=== PATIENT | male | born 1980 | race Caucasian/White ===

== ENCOUNTER 2018-05-08 20:11 | Emergency (ER) | payer BC ==
[2018-05-08] MEDS ORDERED: Diphtheria,Pertussis(Acell),Tetanus Vaccine 0.5 ML Syringe IM ONE (20:31)
[2018-05-08] MEDS ORDERED: Bacitracin Oint 1 GM U/D Packet TOP ONE (20:31)
--- NOTE | 2018-05-08 20:38 | EDM.PDOC ---
ED HPI GENERAL MEDICAL PROBLEM - General Chief Complaint: Laceration Stated Complaint: LACERATION MIDDLE FINGER Time Seen by Provider: 05/08/18 20:22 - History of Present Illness INITIAL COMMENTS - FREE TEXT/NARRATIVE: HISTORY AND PHYSICAL: History of present illness: The patient is a 38-year-old male who is unsure of his last tetanus shot and presents after cutting his left index and middle fingers while at work area and he says he was working with a hose and he cut the area he did not crush it. He has no neurosensory changes and is able to flex and extend at the digits. Prior to this event he was in his usual state of good health and has no systemic complaints. Review of systems: As per history of present illness and below otherwise all systems reviewed and negative. Past medical history: As per history of present illness and as reviewed below otherwise noncontributory. Surgical history: As per history of present illness and as reviewed below otherwise noncontributory. Social history: No reported history of drug or alcohol abuse. Family history: As per history of present illness and as reviewed below otherwise noncontributory. Physical exam: General: Well-developed well-nourished man who is nontoxic and vital signs have been reviewed by me HEENT: Atraumatic, normocephalic, negative for conjunctival pallor or scleral icterus, mucous membranes moist, throat clear, neck supple, nontender, trachea midline. Lungs: Clear to auscultation, breath sounds equal bilaterally, chest nontender. Heart: S1S2, regular rate and rhythm no overt murmurs Abdomen: Soft, nondistended, nontender. NABS Pelvis: Deferred Genitourinary: Deferred. Rectal: Deferred. Extremities: Atraumatic with full range of motion of all extremities with the exception of the left digits 2 and 3 where there are lacerations. At the volar/ palmar aspect of the index finger at the middle phalanx on the left there is a very superficial 2.0 cm laceration which is not extending to the subcutaneous and there is no soft tissue swelling. At the palmar aspect of the middle phalanx of the third digit there is a 2.75 cm laceration to the subcutaneous which is nonbleeding and there is no soft tissue swelling. There are no bony defects or tenderness to these digits. The patient is able to flex against resistance at the superficialis and profundus tendons. The remainder of the digits and hand are without defects deformities or injuries. Neurovascular unremarkable. Neuro: Awake, alert, oriented. Cranial nerves II through XII unremarkable. Cerebellum unremarkable. Motor and sensory unremarkable throughout. Exam nonfocal. Diagnostics: [] Therapeutics: Tdap, wound cleansing bacitracin and dressing after suture placement Procedure note: After the wound was cleansed the procedure was explained to the patient and local anesthesia was placed on the middle finger with 1% lidocaine without epinephrine. The wound was prepped and draped in sterile fashion and The wound was explored and no foreign bodies were appreciated. The skin edges were reapproximated using a total number of # 4 simple interrupted sutures of 4-0 Nylon. There were no complications and tolerated the procedure well. Bacitracin and tube gauze were placed on this finger as well as the index finger where there is a superficial laceration. It was explained to the patient that the other laceration on the index finger does not have significant depth requiring repair. These wounds were of simple complexity. The wound was repaired by Jessica MEJIA Impression: Lacerations to index and middle digit left hand Definitive disposition and diagnosis as appropriate pending reevaluation and review of above. Left Middle 3-Middle finger Pain Score (Numeric/FACES): 2 - Related Data Allergies Allergy/AdvReac Type Severity Reaction Status Date / Time No Known Allergies Allergy Verified 05/08/18 20:36 Home Meds: Home Meds . [No Known Home Meds] 05/08/18 [History] ED ROS GENERAL - Review of Systems Review Of Systems: ROS reveals no pertinent complaints other than HPI. ED EXAM, SKIN/RASH Exam: See Below (see Dictation) Course - Vital Signs Last Recorded V/S: Last Vital Signs Temp 36.4 C 05/08/18 20:23 Pulse 89 05/08/18 20:23 Resp 18 05/08/18 20:23 BP 143/95 H 05/08/18 20:23 Pulse Ox 97 05/08/18 20:23 - Orders/Labs/Meds Orders: Active Orders 24 hr Category Date Time Status Vaccines to be Administered [RC] PER UNIT ROUTINE Care 05/08/18 20:31 Active Meds: Medications Discontinued Medications Generic Name Dose Route Start Last Admin Trade Name Freq PRN Reason Stop Dose Admin Bacitracin 1 dose 05/08/18 20:31 05/08/18 20:48 Bacitracin Oint 1 Gm TOP 05/08/18 20:32 1 dose ONETIME ONE Administration Diphtheria/Tetanus/Acell Pertussis 0.5 ml 05/08/18 20:31 05/08/18 20:45 Adacel IM 05/08/18 20:32 0.5 ml .ONCE ONE Administration Lidocaine HCl Confirm 05/08/18 20:35 Xylocaine-Mpf 1% Administered 05/08/18 20:36 Dose 10 mls @ as directed .ROUTE .STK-MED ONE Lidocaine HCl 10 ml 05/08/18 20:31 05/08/18 20:45 Xylocaine-Mpf 1% INJECT 05/08/18 20:32 10 ml ONETIME ONE Administration Departure - Departure Time of Disposition: 20:58 Disposition: Home, Self-Care 01 Condition: Good Clinical Impression: Laceration of finger Qualifiers: Encounter type: initial encounter Finger: unspecified finger Damage to nail status: without damage Foreign body presence: without foreign body Laterality: left Qualified Code(s): S61.219A - Laceration without foreign body of unspecified finger without damage to nail, initial encounter - Discharge Information Referrals: PCP,None [Primary Care Provider] - Forms: ED Department Discharge Additional Instructions: The following information is given to patients seen in the emergency department who are being discharged to home. This information is to outline your options for follow-up care. We provide all patients seen in our emergency department with a follow-up referral. The need for follow-up, as well as the timing and circumstances, are variable depending upon the specifics of your emergency department visit. If you don't have a primary care physician on staff, we will provide you with a referral. We always advise you to contact your personal physician following an emergency department visit to inform them of the circumstance of the visit and for follow-up with them and/or the need for any referrals to a consulting specialist. The emergency department will also refer you to a specialist when appropriate. This referral assures that you have the opportunity for followup care with a specialist. All of these measure are taken in an effort to provide you with optimal care, which includes your followup. Under all circumstances we always encourage you to contact your private physician who remains a resource for coordinating your care. When calling for followup care, please make the office aware that this follow-up is from your recent emergency room visit. If for any reason you are refused follow-up, please contact the [facility] emergency department at and ask to speak to the emergency department charge nurse. [facility] Primary care- Internal Medicine and Family [address] [address] Keep the dressing that was placed in the ED on for the next 24 hours and then remove and cleanse with mild soap and water pat dry. He may apply bacitracin or Neosporin to the area. Please cleanse the area with mild soap and water at least 2-3 times a day. Do not use Band-Aids and if you need to cover the wound please use gauze. Sutures should come out in 7 days either here in the emergency department or with your provider in the clinic. Return to ER as needed and as discussed - My Orders Last 24 Hours: My Active Orders 05/08/18 20:31 Vaccines to be Administered [RC] PER UNIT ROUTINE - Assessment/Plan Last 24 Hours: My Active Orders 05/08/18 20:31 Vaccines to be Administered [RC] PER UNIT ROUTINE
== END 2018-05-08 21:17 | disposition home or self-care (01) ==
LOC: MW.ED 20:11
DX: S61.213A Laceration without foreign body of left middle finger without damage to nail, initial encounter (principal); S61.211A Laceration without foreign body of left index finger without damage to nail, initial encounter; Z23 Encounter for immunization; W26.8XXA Contact with other sharp object(s), not elsewhere classified, initial encounter; Y99.0 Civilian activity done for income or pay
CPT/HCPCS: 90471; 90715; 99283-25